=== PATIENT | female | born 1965 | race Caucasian/White ===

== ENCOUNTER 2019-07-26 14:09 | Outpatient (CLI) | payer OTHER | END 2019-07-26 23:59 | disposition home or self-care (01) | LOC: CFH 14:09 | PROVIDERS: ATTEND Nurse Practitioner Women's Health | DX: Z12.31 Encounter for screening mammogram for malignant neoplasm of breast (principal) | CPT/HCPCS: 77067 ==

== ENCOUNTER 2021-06-09 16:17 | Emergency (ER) | payer OTHER ==
[~2021-06-09] VITALS: Ht 170.2 cm; Wt 70.4 kg
[2021-06-09] MEDS ORDERED: SODIUM CHLORIDE 0.9% 1,000ML IVBOLUS ONE (16:30)
[2021-06-09 17:00] LABS: BASOPHILS % (AUTO) 1 % (0-1); EOSINOPHILS % (AUTO) 1 % (1-7); LYMPHOCYTES % (AUTO) 21 % (22-44); MEAN CORPUSCULAR HEMOGLOBIN 29.1 pg (27.0-34.8); MEAN CORPUSCULAR HGB CONC 33.1 g/dL (32.4-35.8); MEAN PLATELET VOLUME 8.5 fL (7.4-10.4); MONOCYTES % (AUTO) 5 % (2-9); NEUTROPHILS % (AUTO) 73 % (42-75); PLATELET COUNT 298 x10^3/uL (130-400); RED BLOOD COUNT 4.66 x10^6/uL (3.82-5.3); RED CELL DISTRIBUTION WIDTH 13.5 % (9.6-15.2)
[2021-06-09 17:10] LABS: ALBUMIN 3.6 g/dL (3.4-5.0); ANION GAP 3 mmol/L (5-15); CALCIUM 8.8 mg/dL (8.5-10.1); CHLORIDE 105 mmol/L (98-107)
[2021-06-09 17:14] LABS: ALANINE AMINOTRANSFERASE 25 U/L (12-78); ALKALINE PHOSPHATASE 73 U/L (45-117); BILIRUBIN,TOTAL 0.4 mg/dL (0.2-1.0); CREATININE 0.83 mg/dL (0.55-1.02); TOTAL PROTEIN 7.2 g/dL (6.4-8.2)
--- NOTE | 2021-06-09 17:26 | NUR ---
report clerk note: Pt to room from lobby.
[2021-06-09] MEDS ORDERED: OMNIPAQUE 350 MG/ML, 100ML BOTTLE ONE (18:00)
--- NOTE | 2021-06-09 18:00 | NUR ---
ERP IN TO SEE PT. CHRISTOFER RN IN TO START IV FOR CT.
--- NOTE | 2021-06-09 18:16 | NUR ---
PT TO CT.
--- NOTE | 2021-06-09 18:48 | NUR ---
PICKER OPERATOR AMBULATING PT TO BR TO PROVIDE UA.
--- NOTE | 2021-06-09 19:01 | NUR ---
REPORT TO BRYANNA RN, TRANSFER OF CARE AT THIS TIME.
[2021-06-09 19:21] LABS: MICROSCOPIC NOT IND
[2021-06-09 20:25] VITALS: BP 156/73
== END 2021-06-09 20:25 | disposition home or self-care (01) ==
LOC: ED 17:21
DX: K92.2 Gastrointestinal hemorrhage, unspecified (principal); K92.1 Melena; A09 Infectious gastroenteritis and colitis, unspecified; R94.31 Abnormal electrocardiogram [ECG] [EKG]; R51.9 Headache, unspecified
CPT/HCPCS: 36415; 74177; 80053; 81003; 85025; 93005; 99285; Q9967

== ENCOUNTER 2021-06-12 10:34 | Outpatient (CLI) | payer OTHER | END 2021-06-12 23:59 | disposition home or self-care (01) | LOC: CFH 10:34 | PROVIDERS: ATTEND Family Medicine | DX: Z12.31 Encounter for screening mammogram for malignant neoplasm of breast (principal) | CPT/HCPCS: 77063; 77067 ==